=== PATIENT | female | born 1950 | race American Indian/Alaskan Native ===

== ENCOUNTER 2024-12-18 09:56 | Emergency (ER) | payer OTHER ==
[~2024-12-18] VITALS: Ht 170.2 cm; Wt 74.8 kg
[2024-12-18] MEDS ORDERED: ACETAMINOPHEN 500 MG GEL..CAP PO ONE (10:51)
[2024-12-18] MEDS ORDERED: ACETAMINOPHEN 500 MG GEL..CAP PO STA (10:52)
== END 2024-12-18 13:07 | disposition home or self-care (01) ==
LOC: ER 12:08
DX: S93.402A Sprain of unspecified ligament of left ankle, initial encounter (principal); S80.01XA Contusion of right knee, initial encounter; W18.39XA Other fall on same level, initial encounter; Y93.89 Activity, other specified; Y92.89 Other specified places as the place of occurrence of the external cause; Y99.9 Unspecified external cause status